=== PATIENT | female | born 1955 | race Caucasian/White ===

== ENCOUNTER 2022-05-16 13:50 | Emergency (ER) | payer MEDICARE ==
[~2022-05-16] VITALS: Ht 157.5 cm; Wt 68.0 kg
[2022-05-16] MEDS ORDERED: FAMOTIDINE 20 MG/2 ML VIAL IV NR (14:11)
[2022-05-16] MEDS ORDERED: SODIUM CHLORIDE FLUSH 10 ML SYR IV PRN (14:15)
[2022-05-16] MEDS ORDERED: ACETAMINOPHEN 325 MG TAB PO ONE ×2 (14:15→20:15)
[2022-05-16] MEDS ORDERED: DIAZEPAM INJ 5 MG/ML 2 ML IV NR (14:15)
[2022-05-16 14:31] LABS: BASOPHILS % 0.5 % (0.0-1.0); EOSINOPHILS # (AUTO) 0.1 (0.0-0.4); EOSINOPHILS % 2.5 % (0.0-6.0); HEMATOCRIT 41.1 % (34.2-44.1); HEMOGLOBIN 12.6 g/dL (12.0-16.0); LYMPHOCYTES # (AUTO) 1.5 (1.0-3.2); LYMPHOCYTES % 26.5 % (18.0-39.1); MEAN CORPUSCULAR HEMOGLOBIN 28.6 pg (28-32); MEAN CORPUSCULAR HGB CONC 30.7 g/dL (31-35); MEAN CORPUSCULAR VOLUME 93.2 fL (81-99); MONOCYTES # (AUTO) 0.5 (0.2-0.8); MONOCYTES % 8.5 % (4.4-11.3); NEUTROPHILS # (AUTO) 3.4 (2.1-6.9); NEUTROPHILS % 61.5 % (38.7-80.0); PLATELET COUNT 188 x10e3/uL (140-360); RED BLOOD COUNT 4.41 x10e6/uL (3.6-5.1); RED CELL DISTRIBUTION WIDTH 13.5 % (11.7-14.4)
[2022-05-16 14:54] LABS: ALBUMIN 3.6 g/dL (3.5-5.0); ANION GAP 15.2 mmol/L (8-16); CALCIUM 9.4 mg/dL (8.4-10.2); CREATININE, SERUM 0.85 mg/dL (0.57-1.11); POTASSIUM 4.2 mmol/L (3.5-5.1)
[2022-05-16] MEDS ORDERED: KETOROLAC TROMETHAMINE 30 MG/ML VIAL IV STA (15:53)
[2022-05-16] MEDS ORDERED: ONDANSETRON HCL 4 MG ORAL DISINTEGRATING TAB PO ONE (22:00)
[2022-05-16] MEDS ORDERED: ONDANSETRON HCL 4 MG ORAL DISINTEGRATING TAB ONE (22:08)
[2022-05-16 22:51] VITALS: BP 143/83
== END 2022-05-16 22:53 ==
LOC: ER 13:54
DX: R45.851 Suicidal ideations (principal); R07.89 Other chest pain; I10 Essential (primary) hypertension; J44.9 Chronic obstructive pulmonary disease, unspecified; F41.9 Anxiety disorder, unspecified; F17.210 Nicotine dependence, cigarettes, uncomplicated
CPT/HCPCS: 36415; 71045; 71260; 80053; 83880; 84484; 85025; 85379; 93005; 99285; J1885; J3360; Q0162